=== PATIENT | male | born 1945 | race Caucasian/White ===

== ENCOUNTER → 2020-01-25 | Outpatient (CLI) | payer BC ==
[~2020-01-25] MED LIST: LOSARTAN POTAS100 MG PO; MELOXICAM7.5 MG PO; MYRBETRIQ25 MG PO; NORCO 5-325 TA1 EAC1 PO; NORVASC 2.5 MG2.5 M1 PO
== END ==
LOC: M.RAD 09:31 → M.PC 09:31
DX: M47.26 Other spondylosis with radiculopathy, lumbar region (principal); M16.12 Unilateral primary osteoarthritis, left hip; M51.16 Intervertebral disc disorders with radiculopathy, lumbar region; M48.061 Spinal stenosis, lumbar region without neurogenic claudication

== ENCOUNTER → 2020-02-02 | Outpatient (CLI) | payer BC ==
[~2020-02-02] MED LIST changes: +NORCO 5-325 TA1 EAC2 PO
== END ==
LOC: M.MRI 01-25 12:19
PROVIDERS: ATTEND Physical Medicine & Rehabilitation
DX: M47.27 Other spondylosis with radiculopathy, lumbosacral region (principal); M48.061 Spinal stenosis, lumbar region without neurogenic claudication; M25.78 Osteophyte, vertebrae

== ENCOUNTER → 2020-02-15 | Outpatient (CLI) | payer BC | END | disposition home or self-care (01) | LOC: M.PC 03:29 | PROVIDERS: ATTEND Physical Medicine & Rehabilitation | DX: M16.12 Unilateral primary osteoarthritis, left hip (principal); M25.552 Pain in left hip; I10 Essential (primary) hypertension; E78.5 Hyperlipidemia, unspecified; J44.9 Chronic obstructive pulmonary disease, unspecified; F41.9 Anxiety disorder, unspecified; K21.9 Gastro-esophageal reflux disease without esophagitis; Z98.890 Other specified postprocedural states; Z79.899 Other long term (current) drug therapy ==

== ENCOUNTER → 2020-02-29 | Outpatient (CLI) | payer BC | LOC: M.PC 05:36 | PROVIDERS: ATTEND Physical Medicine & Rehabilitation | DX: M47.816 Spondylosis without myelopathy or radiculopathy, lumbar region (principal); M51.36 Other intervertebral disc degeneration, lumbar region; M48.061 Spinal stenosis, lumbar region without neurogenic claudication ==

== ENCOUNTER 2021-01-22 05:35 | Emergency (ER) | payer OTHER ==
[~2021-01-22] VITALS: Ht 185.4 cm; Wt 108.9 kg
[2021-01-22] MEDS ORDERED: DESYREL150 MG PO (05:55)
[2021-01-22 06:12] LABS: CALCIUM 9.1 mg/dL (8.5-10.1); CREATININE 1.4 mg/dL (0.6-1.3); POTASSIUM 4.2 mmol/L (3.5-5.1)
[2021-01-22 06:17] LABS: TOTAL BILIRUBIN 0.3 mg/dL (<0.1-1.0); TOTAL PROTEIN 7.6 g/dL (6.4-8.2)
[2021-01-22 06:19] LABS: ABSOLUTE LYMPHOCYTES 1.3 thou/uL (0.8-5.3); ABSOLUTE MONOCYTES 0.7 thou/uL (0.0-1.2); ABSOLUTE NEUTROPHILS 5.6 thou/uL (1.6-8.1); BASOPHILS 0.6 %; EOSINOPHILS 0.3 %; HEMATOCRIT 46.5 % (42.0-52.0); HEMOGLOBIN 16.2 gm/dL (14.0-18.0); LYMPHOCYTES 16.8 %; MCH 31.6 pg (26.0-34.0); MCHC 34.9 g/dL (28.0-37.0); MCV 90.6 fL (80.0-100.0); MONOCYTES 8.8 %; MPV 8.6 fl. (7.2-11.1); NUCLEATED RBCS 0 /100WBC; PLATELET COUNT* 192 thou/uL (150-400); POLYS 73.5 %; RBC 5.13 mil/uL (4.50-6.00); RDW-CV 13.2 % (10.5-14.5); WBC 7.6 thou/uL (4.0-11.0)
[2021-01-22 06:41] LABS: URINE BILIRUBIN NEGATIVE (Negative); URINE BLOOD 2+ (Negative); URINE CLARITY CLEAR; URINE COLOR YELLOW; URINE GLUCOSE-RANDOM NEGATIVE (Negative); URINE KETONES NEGATIVE (Negative); URINE LEUKOCYTES-REFLEX NEGATIVE (Negative); URINE NITRITE-REFLEX NEGATIVE (Negative); URINE PROTEIN 1+ (Negative)
[2021-01-22 06:42] LABS: INFLUENZA A ANTIGEN Negative (Negative); INFLUENZA B ANTIGEN Negative (Negative)
[2021-01-22 06:48] LABS: SQUAMOUS 0-3 Few /LPF (0-3)
[2021-01-22 06:49] LABS: BACTERIA-REFLEX 1-9 Few /HPF (None Seen); CRYSTALS None Seen /LPF (None Seen); HYALINE CASTS 0-3 Few /LPF (None Seen); MUCUS >6 Heavy strn/LPF (None Seen); URINE RBC 3-10 Few /HPF (0-2); URINE WBC-REFLEX 0-5 Rare /HPF (0-5)
[2021-01-22 09:29] VITALS: BP 110/62
== END 2021-01-22 09:29 | disposition home or self-care (01) ==
LOC: M.ERS 05:35
PROVIDERS: Emergency Medicine
DX: M19.90 Unspecified osteoarthritis, unspecified site (principal); Z20.822 Contact with and (suspected) exposure to COVID-19; Z98.890 Other specified postprocedural states; Z79.899 Other long term (current) drug therapy

== ENCOUNTER 2021-01-23 09:29 | Inpatient (IN) | payer OTHER ==
[~2021-01-23] VITALS: Ht 182.9 cm; Wt 108.9 kg
[~2021-01-23 09:29] MED LIST changes: +DESYREL150 MG PO
[2021-01-23 09:37] VITALS: BP 119/76
[2021-01-23 10:10] LABS: ABSOLUTE LYMPHOCYTES 1.4 thou/uL (0.8-5.3); ABSOLUTE MONOCYTES 0.7 thou/uL (0.0-1.2); ABSOLUTE NEUTROPHILS 4.5 thou/uL (1.6-8.1); BASOPHILS 0.7 %; EOSINOPHILS 0.3 %; HEMATOCRIT 42.4 % (42.0-52.0); HEMOGLOBIN 14.8 gm/dL (14.0-18.0); LYMPHOCYTES 21.1 %; MCV 91.4 fL (80.0-100.0); MONOCYTES 10.7 %; MPV 8.8 fl. (7.2-11.1); NUCLEATED RBCS 0 /100WBC; PLATELET COUNT* 160 thou/uL (150-400); POLYS 67.2 %; RBC 4.64 mil/uL (4.50-6.00); RDW-CV 13.1 % (10.5-14.5); WBC 6.7 thou/uL (4.0-11.0)
[2021-01-23 10:19] LABS: CALCIUM 8.2 mg/dL (8.5-10.1); CREATININE 1.2 mg/dL (0.6-1.3); POTASSIUM 4.1 mmol/L (3.5-5.1)
--- NOTE | 2021-01-23 10:20 | NUR ---
PT'S DAUGHTER, ADRI DHALIWAL [phone]
[2021-01-23 10:30] LABS: ALBUMIN 3.5 g/dL (3.4-5.0); TOTAL BILIRUBIN 0.5 mg/dL (<0.1-1.0); TOTAL PROTEIN 6.8 g/dL (6.4-8.2)
--- NOTE | 2021-01-23 10:38 | NUR ---
MARNI NATH STARTED PT'S IV.
[2021-01-23 13:10] VITALS: BP 117/50
--- NOTE | 2021-01-23 16:11 | EKG ---
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: ARACELI : 1945 Requested By: Clay Nelson Order Number: [id number] MD: Romero English Measurements Intervals [place] Rate: 110 P: 70 FL: 155 QRS: 39 QRSD: 106 T: 31 QT: 353 QTc: 478 Interpretive Statements Sinus rhythm Ventricular bigeminy Baseline wander in lead(s) I,II,III,aVL,aVF No previous ECG available for comparison Electronically Signed On 01-23-2021 16:11:31 CDT by Romero English [email or web address] <ELECTRONICALLY SIGNED> By: Romero English MD, [facility] 01/23/21 1611 0955 0955 Romero English MD, [facility] /EPI
[2021-01-23 16:35] VITALS: BP 119/67
--- NOTE | 2021-01-23 18:49 | NUR ---
PT A&OX4 VSS. PT ARRIVED ON UNIT APPROX 1315. VANC INFUSING. C/O GENERALIZED ACHES. PT REMAINS AFEBRILE. IV TO RAC PATENT, DRESSING C/D/I. FAMILY UPDATED. PT PROVIDED ENSURE HE C/O DEVCREEASED APPETITE. PT HAS PRETZELS AND LOLLIPOPS AT BEDSIDE. PT PROVIDED EXTRA BLANKETS TO ADDRESS C/O BEING COLD/CHILLED. PT UP TO RECLINER THIS AFTERNOON. PT RESTS IN BED WITH CALL LIGHT IN REACH, WILL CONTINUE TO MONITOR. PT TOLERATES PO INTAKE, NO C/O N/V.
[2021-01-23 20:30] VITALS: BP 133/43
[2021-01-23 23:49] VITALS: BP 117/37
[2021-01-24 05:00] LABS: HEMATOCRIT 39.3 % (42.0-52.0); HEMOGLOBIN 13.8 gm/dL (14.0-18.0); MCH 31.9 pg (26.0-34.0); MCHC 35.1 g/dL (28.0-37.0); MCV 91.1 fL (80.0-100.0); MPV 8.9 fl. (7.2-11.1); RBC 4.32 mil/uL (4.50-6.00); RDW-CV 13.3 % (10.5-14.5); WBC 7.7 thou/uL (4.0-11.0)
[2021-01-24 05:06] VITALS: BP 114/52
[2021-01-24 05:11] LABS: CALCIUM 8.7 mg/dL (8.5-10.1); CREATININE 1.2 mg/dL (0.6-1.3); POTASSIUM 4.1 mmol/L (3.5-5.1)
--- NOTE | 2021-01-24 06:28 | NUR ---
PT AO X4 LYING IN BED AT TIME OF ASSESSMENT, HE HAS HX OF CHRONIC PAIN AND IS REQUESTING PAIN MEDS. HE TAKES HYDROCODONE AT HOME BUT DID NOT LIST IT MED ON ADMIT. PT HAS AMBULATED TO THE TOILET A COUPLE OF TIMES WITH STANDBY ASSIST AND HAS BEEN SLOW AND STIFF. PT TALKS ABOUT TAKING CARE OF HIS WHO IN SEP, HE IS A BIT SAD AND STATES HE DOES NOT COOK, EATING LESS AND NOT THE BEST NUTRITION AT THIS TIME. HE STATES NOTHING TASTED GOOD AT THIS TIME. HIS DAUGHTER HAD MANY QUESTIONS AND CALLED THE FLOOR AFTER HER VISIT TO FIND OUT ABOUT BLOOD CULTURES, SHE WOULD LIKE STAFF TO CALL WITH UPDATES AND QUESTIONS. HE STATES HE HAS NOT HAD A BM IN 4 DAYS. BED ALARM ON FOR SAFETY, CALL LIGHT AND BELONGINGS WITHIN REACH
--- NOTE | 2021-01-24 07:20 | NUR ---
CHANGE OF SHIFT BEDSIDE REPORT GIVEN PATIENT SEEN AT BEDSIDE, IN BED ASLEEP ASSUMED PATIENT CARE
[2021-01-24 08:00] VITALS: BP 108/63
[2021-01-24 09:02] LABS: URINE BILIRUBIN NEGATIVE (Negative); URINE BLOOD TRACE (Negative); URINE CLARITY CLEAR; URINE COLOR YELLOW; URINE GLUCOSE-RANDOM NEGATIVE (Negative); URINE KETONES NEGATIVE (Negative); URINE LEUKOCYTES-REFLEX NEGATIVE (Negative); URINE NITRITE-REFLEX NEGATIVE (Negative); URINE PROTEIN TRACE (Negative); URINE SPECIFIC GRAVITY 1.015 (1.005-1.030)
[2021-01-24 12:41] VITALS: BP 152/71
--- NOTE | 2021-01-24 16:03 | NUR ---
Pt resides at home. Supportive dtr. Independent. A&O. ID consulted, await blood cultures, dc pending cultures. Anticipate dc in a few days.
[2021-01-24 19:50] VITALS: BP 117/81; BP 135/86
[2021-01-24 23:39] VITALS: BP 143/75
[2021-01-25 03:37] VITALS: BP 131/65
--- NOTE | 2021-01-25 04:32 | NUR ---
PT A&O X 4. ON RA. AFEBRILE. MEDS, IVF GIVEN ORDERED. NO C/O PAIN. USES URINAL TO VOID. NEW ONSET OF AFIB. DR NOTIFIED. PT SLEPT MOST OF THE NIGHT. CALL LIGHT WITHIN REACH. WILL CONTINUE TO MONITOR.
[2021-01-25 04:43] LABS: HEMATOCRIT 39.9 % (42.0-52.0); HEMOGLOBIN 13.9 gm/dL (14.0-18.0); MCH 31.7 pg (26.0-34.0); MCHC 34.9 g/dL (28.0-37.0); MPV 9.5 fl. (7.2-11.1); RBC 4.39 mil/uL (4.50-6.00); WBC 8.6 thou/uL (4.0-11.0)
[2021-01-25 05:00] LABS: CALCIUM 8.4 mg/dL (8.5-10.1); CREATININE 1.1 mg/dL (0.6-1.3); POTASSIUM 3.8 mmol/L (3.5-5.1)
[2021-01-25] MEDS ORDERED: DOXYCYCLINE 10100 M2 PO (07:24)
[2021-01-25 07:45] VITALS: BP 111/48
[2021-01-25] MEDS ORDERED: LOPRESSOR50 PO (10:01)
[2021-01-25] MEDS ORDERED: ASPIRIN325 PO (10:02)
[2021-01-25 10:19] VITALS: BP 111/48
[2021-01-25 12:00] VITALS: BP 124/54
--- NOTE | 2021-01-25 12:46 | NUR ---
ASSUMED CARE OF PT AT 0730. PT A&0X4, DENIES ANY PAIN OR SHORTNESS OF BREATH. TRACING SR ON THE CUSTOMER OPERATIONS REPRESENTATIVE. ON RA SAT UPPER 90'S. PT UP AD MOHSEN IN ROOM. CARDIOLOGY HERE TO SEE PT-ORDERS RECEIVED TO START ASPIRIN AND METOPROLOL-GIVEN PER EMAR AND ECHO PRIOR TO DISCHARGE. PT GOAL FOR TODAY IS MAINTAIN SINUS RHYTHM, COMPLETE ECHO AND DISCHARGE PLANNING TO HOME THIS AFTERNOON. AM ASSESSMENT CHARTED. MEDICATIONS PER OCT. PT REPOSITIONS SELF. HOURLY ROUNDING OBSERVED. BED IN LOW POSITION. CALL LIGHT WITHIN REACH. WILL CONTINUE PLAN OF CARE.
--- NOTE | 2021-01-25 13:32 | 2DMMODE ---
[place] [address] 2 D/M-MODE ECHOCARDIOGRAM Name: CHANDU PEDRAZA Room: [address] IN .[facility].#: [id number] Admission: 01/23/21 Attend Phys: Wilfrido Moore Discharge: Date of : 41 Date of Service: 01/25/21 1331 Report #: [id number] THIS REPORT FOR: cc: Yesenia Keller,Yesenia Muñoz,Romero Soliman MD [facility] ~ APPROVED REPORT Study performed: 01/25/2021 10:03:39 EXAM: Comprehensive 2D, Doppler, and color-flow Echocardiogram Patient Location: In-Patient Room #: [facility] Status: routine BSA: 2.30 HR: 91 bpm BP: 111/48 mmHg Rhythm: bigeminy Other Information Study Quality: Good Indications Atrial Fibrillation Bacteremia 2D Dimensions IVSd: 11.23 (7-11mm) LVOT Diam: 20.49 (18-24mm) LVDd: 58.52 mm PWd: 9.57 (7-11mm) Ascending Ao: 32.43 (22-36mm) LVDs: 29.86 (25-40mm) Aortic Root: 33.81 mm Volumes Left Atrial Volume (Systole) LA ESV Index: 27.10 mL/m2 Aortic Valve AoV Peak Liborio.: 1.79 m/s AO Peak Gr.: 12.82 mmHg LVOT Max P.95 mmHg AO Mean Gr.: 7.05 mmHg LVOT Mean P.34 mmHg LVOT Max V: 1.50 m/s AO V2 VTI: 33.13 cm LVOT Mean V: 0.96 m/s BHARGAV (VTI): 2.66 cm2 LVOT V1 VTI: 26.71 [place] [address] 2 D/M-MODE ECHOCARDIOGRAM Name: CHANDU PEDRAZA Room: [address]#: [id number] Admission: 01/23/21 Attend Phys: Wilfrido Moore Discharge: Date of : 41 Date of Service: 01/25/21 1331 Report #: [id number] TDI Medial E' Liborio.: 0.12 m/s Pulmonary Valve PV Peak Liborio.: 1.09 m/s PV Peak Gr.: 4.76 mmHg Tricuspid Valve RAP Estimate: 5.00 mmHg TR Peak Gr.: 21.87 mmHg RVSP: 26.00 mmHg PA Pressure: 26.00 mmHg Left Ventricle The left ventricle is normal size. There is normal LV segmental wall motion. There is normal left ventricular wall thickness. Left ventricular systolic function is normal. The left ventricular ejection fraction is within the normal range. LVEF is 60-65%. This study is not technically sufficient due to bigeminy to allow evaluation of the LV diastolic function. Right Ventricle The right ventricle is normal size. The right ventricular systolic function is normal. Atria The left atrium size is normal. The right atrium size is normal. Aortic Valve Mild aortic valve sclerosis. No aortic regurgitation is present. There is no aortic valvular vegetation. There is no aortic valvular stenosis. Mitral Valve The mitral valve is normal in structure. Mild mitral regurgitation. No evidence of mitral valve stenosis. Tricuspid Valve The tricuspid valve is normal in structure. Trace tricuspid regurgitation. No pulmonary hypertension. Pulmonic Valve Pulmonic valve is not well visualized. There is no pulmonic valvular regurgitation[place] [address] 2 D/M-MODE ECHOCARDIOGRAM Name: CHANDU PEDRAZA Room: [address] IN [facility].#: [id number] Admission: 01/23/21 Attend Phys: Wilfrido Moore Discharge: Date of : 41 Date of Service: 01/25/21 1331 Report #: [id number] The aortic root is normal in size. IVC is normal in size and collapses >50% with inspiration. Pericardium There is no pericardial effusion. <Conclusion> LVEF is 60-65%. Mild aortic valve sclerosis. Mild mitral regurgitation. There is no aortic valvular vegetation. Trace tricuspid regurgitation. No pulmonary hypertension. <ELECTRONICALLY SIGNED> By: Romero English MD, FACC 01/25/211330 30 30 Romero English MD, FACC /INF
[2021-01-25 13:41] VITALS: BP 111/48
[2021-01-25 14:01] VITALS: BP 111/48
--- NOTE | 2021-01-25 14:01 | NUR ---
PT COMPLETED ECHO-REFER TO RESULTS. DISCHARGE ORDERS RECEIVED. DISCHARGE INSTRUCTIONS, CARE NOTES, E SCRIPTS AND FOLLOW UP APPTS GIVEN TO PT. PT COMMUNICATES UNDERSTANDING OF DISCHARGE TEACHING. IV AND BANQUET COORDINATOR REMOVED. PT DISCHARGED WITH ALL BELONGINGS AND PAPERWORK VIA WHEELCHAIR WITH NURSING STAFF TO OWN PERSONAL VEHICLE.
--- NOTE | 2021-01-25 15:51 | EKG ---
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: DT : 1945 Requested By: Wilfrido Moore Order Number: [id number] MD: Romero English Measurements Intervals [place] Rate: 107 P: ND: QRS: 30 QRSD: 100 T: 28 QT: 341 QTc: 455 Interpretive Statements Atrial fibrillation Low voltage, precordial leads Baseline wander in lead(s) V6 Compared to ECG 01/23/2021 09:55:45 Low QRS voltage now present Sinus rhythm no longer present PVC's no longer noted Electronically Signed On 01-25-2021 15:50:52 CDT by Romero English [email or web address] <ELECTRONICALLY SIGNED> By: Romero English MD, [facility] 01/25/21 1550 Romero English MD, [facility] /EPI
--- NOTE | 2021-01-26 09:50 | CON ---
[address] [address] CONSULTATION Name: CHANDU PEDRAZA Jeronimo Room: [address] IN .[place].#: [id number] Admission: 01/23/21 Attend Phys: Felicity Muñiz Discharge: 01/25/21 Date of : 41 Report #: [id number] THIS REPORT FOR: cc: Yesenia Keller,Romero Miranda MD [facility] ~ DOC #: [id number] cc: DO Romero Duque MD [facility] DATE OF CONSULTATION: 01/25/2021 HISTORY OF PRESENT ILLNESS: The patient is a 75-year-old single white male who I was asked to see in the hospital today after he had an episode of atrial fibrillation. The patient denies a history of heart disease. He is not very active at this time. He apparently had a stress test years ago. He notes for the past week, he has not felt very well. He has felt lightheaded, had problems with balance, no appetite, has been running a fever. He ached all over in his joints. He had no rash. He felt weak, finally drove himself to the Emergency Room 2 days ago and was admitted. He was felt to have a bacteremia, likely tick-borne. He was treated with antibiotics. He had an episode of atrial fibrillation, Cardiology consultation was requested. He apparently had a stress test years ago. He has no history of heart disease. He denies any history of exertional chest tightness, shortness of breath, palpitations, syncope, peripheral edema. He has had some cough, but no increased shortness of breath lately. 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 He has had shoulder surgery. He has a history of hypertension, but no history of diabetes or hyperlipidemia. He does have chronic arthritis. He has had shots in the past. He does go to the pain clinic. CURRENT MEDICATIONS: Consist of hydrocodone, amlodipine, losartan, trazodone for sleep. ALLERGIES: He has no known drug allergies. FAMILY HISTORY: His mother had porcine valve replacement. SOCIAL HISTORY: He is , lives in [place]. Retired from [employer]. Uses a cane to ambulate. Quit smoking years ago, rarely drinks alcohol. REVIEW OF SYSTEMS: He has no history of stroke, asthma, liver disease, cancer, psychiatric illness, [place] [address] CONSULTATION Name: CHANDU PEDRAZA Room: [address]#: [id number] Admission: 01/23/21 Attend Phys: Felicity Muñiz Discharge: 01/25/21 Date of : 41 Report #: [id number] PHYSICAL EXAMINATION: GENERAL: Revealed an elderly male who appears in no distress. VITAL SIGNS: He had a blood pressure of 110/60, pulse is 70, he is afebrile. HEENT: He was anicteric. Conjunctivae are pink. Mucosa is moist. NECK: Veins not appear distended. No carotid bruits. CHEST: Clear to auscultation. HEART: Regular rate and rhythm without murmur or rub. ABDOMEN: Obese. EXTREMITIES: Had no edema. Dorsalis pedis pulse, 2+ bilaterally. SKIN: Cool and dry. NEUROLOGIC: Nonfocal. LABORATORY DATA: His ECG on admission 2 days ago showed a sinus rhythm with PVCs in a pattern of bigeminy. Then, last night he went episode of atrial fibrillation with increased ventricular response rate. He currently is in sinus rhythm. His workup so far, he had a chest x-ray that showed normal heart size, otherwise unremarkable. He had a CT scan of the abdomen that showed renal cyst, otherwise unremarkable. His lab work, sodium 138, creatinine 1.1, SGOT 50, SGPT 74. Troponins all less than 0.06. BNP 875. White blood cell count 8.6, hematocrit 39.9. COVID antigen stat test was negative. Urinalysis, trace protein, rare WBCs. His urine blood culture had gram-positive rods. IMPRESSION AND RECOMMENDATIONS: 1. Bacteremia, possibly tick-borne. 2. Hypertension. The patient has been on a calcium reese and ARB. 3. History of arthritis. The patient has been to the pain clinic in the past. 4. Frequent PVCs. Recommend echocardiogram. 5. Episode of atrial fibrillation. I would consider starting beta reese. If he has recurrent atrial fibrillation, I would consider antiarrhythmic therapy. If he has recurrent atrial fibrillation, I would also consider anticoagulation. In the meantime, I would start an aspirin a day. 6. Elevated liver function studies. Romero English MD [facility] QUINTIN/TRISTIN <ELECTRONICALLY SIGNED> By: Romero English MD, [facility] 01/26/21 0950 [id number] [id number] English MD, FACC /nt
== END 2021-01-25 14:02 | disposition home or self-care (01) | DRG 872 ==
LOC: M.ERS 09:29 → M.TBA-ER 10:47 → M.2W 10:47
PROVIDERS: Emergency Medicine Emergency Medical Services; Family Medicine; ADMIT Internal Medicine; ATTEND Internal Medicine
DX: A41.9 Sepsis, unspecified organism (principal); E87.1 Hypo-osmolality and hyponatremia; A93.8 Other specified arthropod-borne viral fevers; Z20.822 Contact with and (suspected) exposure to COVID-19; I10 Essential (primary) hypertension; M19.90 Unspecified osteoarthritis, unspecified site; I49.3 Ventricular premature depolarization; I48.91 Unspecified atrial fibrillation; E78.5 Hyperlipidemia, unspecified; Z60.2 Problems related to living alone; M25.50 Pain in unspecified joint; Z82.49 Family history of ischemic heart disease and other diseases of the circulatory system; Z87.891 Personal history of nicotine dependence

== ENCOUNTER → 2021-05-01 | Outpatient (CLI) | payer BC ==
[~2021-05-01] MED LIST changes: +ASPIRIN325 PO; +DOXYCYCLINE 10100 M2 PO; +LOPRESSOR50 PO
== END ==
LOC: M.PC 09:30
PROVIDERS: ATTEND Physical Medicine & Rehabilitation
DX: M47.816 Spondylosis without myelopathy or radiculopathy, lumbar region (principal); M48.061 Spinal stenosis, lumbar region without neurogenic claudication; M51.36 Other intervertebral disc degeneration, lumbar region; M16.12 Unilateral primary osteoarthritis, left hip; M25.551 Pain in right hip

== ENCOUNTER → 2021-06-10 | Outpatient (CLI) | payer BC ==
[~2021-06-10] MED LIST changes: +ELIQUIS5 M1 PO; +GABAPENTIN 100100 MG PO
== END | disposition home or self-care (01) ==
LOC: M.PC 09:27
PROVIDERS: ATTEND Physical Medicine & Rehabilitation
DX: M51.16 Intervertebral disc disorders with radiculopathy, lumbar region (principal); M48.061 Spinal stenosis, lumbar region without neurogenic claudication; M54.59 Other low back pain; M79.605 Pain in left leg; I10 Essential (primary) hypertension; I25.10 Atherosclerotic heart disease of native coronary artery without angina pectoris; E78.5 Hyperlipidemia, unspecified; J44.9 Chronic obstructive pulmonary disease, unspecified; F41.9 Anxiety disorder, unspecified; K21.9 Gastro-esophageal reflux disease without esophagitis; Z98.890 Other specified postprocedural states; Z79.899 Other long term (current) drug therapy

== ENCOUNTER → 2021-06-24 | Outpatient (CLI) | payer BC, OTHER | LOC: M.PC 09:44 | PROVIDERS: ATTEND Physical Medicine & Rehabilitation | DX: M47.816 Spondylosis without myelopathy or radiculopathy, lumbar region (principal); M48.061 Spinal stenosis, lumbar region without neurogenic claudication; M51.26 Other intervertebral disc displacement, lumbar region; M16.12 Unilateral primary osteoarthritis, left hip; G62.9 Polyneuropathy, unspecified; E78.5 Hyperlipidemia, unspecified; I10 Essential (primary) hypertension; K21.9 Gastro-esophageal reflux disease without esophagitis ==

== ENCOUNTER → 2021-07-29 | Outpatient (CLI) | payer BC, OTHER | LOC: M.PC 07-22 09:00 | PROVIDERS: ATTEND Physical Medicine & Rehabilitation | DX: M47.816 Spondylosis without myelopathy or radiculopathy, lumbar region (principal); M51.26 Other intervertebral disc displacement, lumbar region; M16.12 Unilateral primary osteoarthritis, left hip; M25.552 Pain in left hip; M25.551 Pain in right hip ==

== ENCOUNTER → 2021-09-11 | Outpatient (CLI) | payer BC | LOC: M.PC 08:58 | PROVIDERS: ATTEND Physical Medicine & Rehabilitation | DX: M47.816 Spondylosis without myelopathy or radiculopathy, lumbar region (principal); M51.26 Other intervertebral disc displacement, lumbar region; M16.12 Unilateral primary osteoarthritis, left hip; G62.9 Polyneuropathy, unspecified ==

== ENCOUNTER → 2021-10-02 | Outpatient (CLI) | payer BC ==
[~2021-10-02] MED LIST changes: +HYDROCODON-ACE1 EAC7 PO; +LYRICA25 MG PO
== END | disposition home or self-care (01) ==
LOC: M.PC 09:36
PROVIDERS: ATTEND Physical Medicine & Rehabilitation
DX: M54.59 Other low back pain (principal); M47.816 Spondylosis without myelopathy or radiculopathy, lumbar region; M48.061 Spinal stenosis, lumbar region without neurogenic claudication; M51.36 Other intervertebral disc degeneration, lumbar region; M25.551 Pain in right hip; M25.552 Pain in left hip; M16.12 Unilateral primary osteoarthritis, left hip; I10 Essential (primary) hypertension; I25.10 Atherosclerotic heart disease of native coronary artery without angina pectoris; J44.9 Chronic obstructive pulmonary disease, unspecified; E78.5 Hyperlipidemia, unspecified; F41.9 Anxiety disorder, unspecified; K21.9 Gastro-esophageal reflux disease without esophagitis; Z98.890 Other specified postprocedural states; Z79.899 Other long term (current) drug therapy; Z79.01 Long term (current) use of anticoagulants